=== PATIENT | male | born 1985 | race American Indian/Alaskan Native ===

== ENCOUNTER 2017-08-31 20:51 | Emergency (ER) | payer OTHER ==
[2017-08-31 22:23] LABS: Basophils % (Auto) 0.3 % (0.0-1.8); Eosinophils % (Auto) 0.6 % (0.0-4.3); Hematocrit 48.6 % (35.5-45.6); Hemoglobin 16.5 gm/dl (11.8-15.2); Lymphocytes % (Auto) 18.5 % (13.4-35.0); Mean Corpuscular HGB Conc 34 % (32-34); Mean Corpuscular Hemoglobin 30 pg (28-32); Mean Corpuscular Volume 87 fl (84-94); Monocytes # (Auto) 0.6 K/mm3 (0.0-0.8); Monocytes % (Auto) 10.2 % (0.0-7.3); Platelet Count 198 K/mm3 (140-440); Red Blood Count 5.55 M/mm3 (3.65-5.03); Red Cell Distribution Width 13.7 % (13.2-15.2)
[2017-08-31 22:44] LABS: BUN/Creatinine Ratio 9; Blood Urea Nitrogen 8 mg/dL (9-20); Calcium 9.4 mg/dL (8.4-10.2); Hemolysis Index 11
[2017-09-01 02:22] LABS: Bilirubin,Urine NEG (Negative); Blood,Urine SM (Negative); Color,Urine Yellow (Yellow); Mucus,Urine 1+ /HPF; Nitrite,Urine NEG (Negative); Protein,Urine <15 mg/dL mg/dL (Negative); Urobilinogen,Urine < 2.0 mg/dL (<2.0)
--- NOTE | 2017-09-01 10:51 | Emergency Department Report ---
HPI - General Chief Complaint: Chest Pain Time Seen by Provider: 09/01/17 10:10 - HPI HPI: Patient is a 31-year-old male with no prior medical history presents to ED complaining of made lower sternal chest pain 1 day as well as lower back pain 2 days. Patient states that about 2-3 days ago he was lifted up window when he felt the pain in his back. 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 Patient denies any other trauma or fall. Patient states he takes no medications. He denies pain as throbbing localized to the midsternal lower region of the chest. Patient also describes lower back pain as throbbing and aching in nature. localized to her lower back. Patient states chest and back pain is worsened with certain movements. He denies fevers/chills/nausea/vomiting/S of breath/dysuria/dizziness or headache ED Past Medical Hx - Past Medical History Previous Medical History?: No - Surgical History Past Surgical History?: No - Social History Smoking Status: Current Every Day Smoker Substance Use Type: Marijuana, Other - Medications Home Medications: Home Medications Medication Instructions Recorded Confirmed Last Taken Type Cyclobenzaprine [Flexeril 10 MG 10 mg PO QHS PRN #21 tablet 09/01/17 Unknown Rx TAB] Ibuprofen [Motrin 800 MG tab] 800 mg PO Q8HR PRN #30 tablet 09/01/17 Unknown Rx ED Review of Systems ROS: Stated complaint: CHEST PAIN Other details as noted in HPI Constitutional: denies: chills, fever Eyes: denies: eye pain, eye discharge, vision change ENT: denies: ear pain, throat pain Respiratory: denies: cough, shortness of breath, wheezing Cardiovascular: denies: chest pain, palpitations Endocrine: no symptoms reported Gastrointestinal: denies: abdominal pain, nausea, diarrhea Genitourinary: denies: urgency, dysuria Musculoskeletal: myalgia. denies: back pain, joint swelling, arthralgia Skin: denies: rash, lesions Neurological: denies: headache, weakness, paresthesias Psychiatric: denies: anxiety, depression Hematological/Lymphatic: denies: easy bleeding, easy bruising Physical Exam - Physical Exam Vital Signs: Vital Signs 08/31/17 21:08 Temperature 98.5 F Pulse Rate 87 Respiratory 18 Rate Blood Pressure 120/84 O2 Sat by Pulse 99 Oximetry Physical Exam: GENERAL: Alert and oriented x3, no apparent distress, Normal Gait, atraumatic. HEAD: Head is normocephalic and a-traumatic. EYES: Extra ocular muscles are intact. Pupils are equal, round, and reactive to light and accommodation. NECK: Supple. Non edematous, No lymphadenopathy or thyromegaly. No C-spine tenderness LUNGS: Symetrical with respiration, No wheezing, no rales or crackles, CTAB. HEART: S1, S2 present, regular rate and rhythm without murmur, no rubs, no gallops. tender to palpation of mid sternal chest muscles BACK: Full range of motion, no spinal tenderness, tender to palpation of the latissimus dorsi muscles. EXTREMITIES/MUSCULOSKELETAL: No cyanosis, clubbing, rash, lesions or edema. Full ROM bilaterally. UE/LE Pulses 2+ bilaterally. LE and UE 5+ strength bilaterally, NEUROLOGIC: The patient is cooperative with no focal neurologic deficits. Normal speech. Normal sensation in bilateral upper and lower extremities, No loss of sensation, SKIN: Warm and dry, No lesions, No ulceration or induration present. ED Course Vital Signs 08/31/17 21:08 Temperature 98.5 F Pulse Rate 87 Respiratory 18 Rate Blood Pressure 120/84 O2 Sat by Pulse 99 Oximetry ED Medical Decision Making - Lab Data Result diagrams: 08/31/17 21:18 08/31/17 21:18 Laboratory Last Values WBC 5.4 K/mm3 (4.5-11.0) 08/31/17 21:18 RBC 5.55 M/mm3 (3.65-5.03) H 08/31/17 21:18 Hgb 16.5 gm/dl (11.8-15.2) H 08/31/17 21:18 Hct 48.6 % (35.5-45.6) H 08/31/17 21:18 MCV 87 fl (84-94) 08/31/17 21: MCH 30 pg (28-32) 08/31/17 21:18 MCHC 34 % (32-34) 08/31/17 21:18 RDW 13.7 % (13.2-15.2) 08/31/17 21:18 Plt Count 198 K/mm3 (140-440) 08/31/17 21:18 Lymph % (Auto) 18.5 % (13.4-35.0) 08/31/17 21:18 [place] % (Auto) 10.2 % (0.0-7.3) H 08/31/17 21:18 Eos % (Auto) 0.6 % (0.0-4.3) 08/31/17 21:18 Baso % (Auto) 0.3 % (0.0-1.8) 08/31/17 21:18 Lymph # 1.0 K/mm3 (1.2-5.4) L 08/31/17 21:18 [place] # 0.6 K/mm3 (0.0-0.8) 08/31/17 21:18 Eos # 0.0 K/mm3 (0.0-0.4) 08/31/17 21:18 Baso # 0.0 K/mm3 (0.0-0.1) 08/31/17 21:18 Seg Neutrophils % 70.4 % (40.0-70.0) H 08/31/17 21:18 Seg Neutrophils # 3.8 K/mm3 (1.8-7.7) 08/31/17 21:18 Sodium 139 mmol/L (137-145) 08/31/17 21:18 Potassium 4.0 mmol/L (3.6-5.0) 08/31/17 21:18 Chloride 97.9 mmol/L (98-107) L 08/31/17 21:18 Carbon Dioxide 25 mmol/L (22-30) 08/31/17 21:18 Anion Gap 20 mmol/L 08/31/17 21:18 BUN 8 mg/dL (9-20) L 08/31/17 21:18 Creatinine 0.9 mg/dL (0.8-1.5) 08/31/17 21:18 Estimated GFR > 60 ml/min 08/31/17 21:18 BUN/Creatinine Ratio 9 % 08/31/17 21:18 Glucose 84 mg/dL (75-100) 08/31/17 21:18 Calcium 9.4 mg/dL (8.4-10.2) 08/31/17 21:18 Troponin T < 0.010 ng/mL (0.00-0.029) 09/01/17 03:14 Urine Color Yellow (Yellow) 09/01/17 01:55 Urine Turbidity Clear (Clear) 09/01/17 01:55 Urine pH 5.0 (5.0-7.0) 09/01/17 01:55 Ur Specific [place] 1.018 (1.003-1.030) 09/01/17 01:55 Urine Protein <15 mg/dl mg/dL (Negative) 09/01/17 01:55 Urine Glucose (UA) Neg mg/dL (Negative) 09/01/17 01:55 Urine Ketones 20 mg/dL (Negative) 09/01/17 01:55 Urine Blood Sm (Negative) 09/01/17 01:55 Urine Nitrite Neg (Negative) 09/01/17 01:55 Urine Bilirubin Neg (Negative) 09/01/17 01:55 Urine Urobilinogen < 2.0 mg/dL (<2.0) 09/01/17 01:55 Ur Leukocyte Esterase Neg (Negative) 09/01/17 01:55 Urine WBC (Auto) 3.0 /HPF (0.0-6.0) 09/01/17 01:55 Urine RBC (Auto) 20.0 /HPF (0.0-6.0) 09/01/17 01:55 U Epithel Cells (Auto) < 1.0 /HPF (0-13.0) 09/01/17 01:55 Urine Mucus 1+ /HPF 09/01/17 01:55 - EKG Data EKG shows normal: sinus rhythm Rate: normal - EKG Data Interpretation: normal EKG - Medical Decision Making Patient presents for low back myalgia and chest wall muscle pain ED course: Chest pain protocol this resulted, negative findings EKG shows normal EKG, no abnormalities I discussed this findings with the patient. I discussed the patient if worsening symptoms he should return to ED immediately Patient states he is not having chest pain at the moment. Exam showed chest pain is muscular related as well as low back pain. Vital signs normal, patient is in no acute distress. Patient has no neuro deficits he understands the instructions given and states he will follow-up as discussed. Critical care attestation.: If time is entered above; I have spent that time in minutes in the direct care of this critically ill patient, excluding procedure time. ED Disposition Clinical Impression: Strain of muscle, fascia and tendon of lower back, initial encounter, Chest pain, musculoskeletal Disposition: [id number] TO HOME OR SELFCARE Is pt being admited?: No Does the pt Need Aspirin: No Condition: Stable Instructions: Chest Pain (ED), Muscle Strain (ED), Costochondritis (ED), Musculoskeletal Pain (ED), Heat Pack Application (ED) Additional Instructions: Make sure to follow up with the primary care physician as discussed. Take all your medications as you've been prescribed. If you have any worsening symptoms or develop new symptoms please return to ED immediately. Prescriptions: Cyclobenzaprine [Flexeril 10 MG TAB] 10 mg PO QHS PRN #21 tablet PRN Reason: Muscle Spasm Ibuprofen [Motrin 800 MG tab] 800 mg PO Q8HR PRN #30 tablet PRN Reason: Pain Referrals: PRIMARY CAREMD [Primary Care Provider] - 3-5 Days ALE MAR MD [Staff Physician] - 3-5 Days [facility] [Outside] - 3-5 Days [facility] [Outside] - 3-5 Days Forms: Work/School Release Form(ED) Time of Disposition: 11:07
[2017-09-01 11:19] VITALS: BP 125/85
== END 2017-09-01 11:15 | disposition home or self-care (01) ==
LOC: ED 20:51
DX: S39.012A Strain of muscle, fascia and tendon of lower back, initial encounter (principal); R07.89 Other chest pain; F17.200 Nicotine dependence, unspecified, uncomplicated; W22.09XA Striking against other stationary object, initial encounter; Y93.89 Activity, other specified; Y92.89 Other specified places as the place of occurrence of the external cause; Y99.8 Other external cause status
CPT/HCPCS: 36415; 80048; 81001; 84484; 85025; 93005; 93010; 99283